=== PATIENT | male | born 1990 | race Caucasian/White ===

== ENCOUNTER 2019-02-01 16:37 | Emergency (ER) | payer BC ==
[~2019-02-01] VITALS: Ht 175.3 cm; Wt 131.8 kg
[~2019-02-01 16:37] MED LIST: IBUP-1542 PO
[2019-02-01 17:03] VITALS: Ht 175.3 cm; Wt 131.8 kg
[2019-02-01 17:15] VITALS: BP 127/79; PULSE 89; RESP 18
[2019-02-01] MEDS ORDERED: IBUPROFEN 600 MG TAB PO ONE (18:30)
== END 2019-02-01 18:55 | disposition home or self-care (01) ==
LOC: FTE 16:37
DX: R07.89 Other chest pain (principal); R51 Headache
CPT/HCPCS: 71045; 80048; 84484; 85025; 93005